=== PATIENT | female | born 1980 | race Caucasian/White ===

== ENCOUNTER 2023-01-31 08:47 | Day surgery (SDC) | payer OTHER ==
[2023-01-30 09:56] VITALS: BMI 20.8
[2023-01-31] MEDS ORDERED: PROPOFOL 60 ML ONE (09:57)
[2023-01-31] MEDS ORDERED: BUPIVACAINE 0.25% /EPI 1:200,000 10 ML VIAL INF ONE ×3 (10:27→10:40)
[2023-01-31] MEDS ORDERED: MIDAZOLAM HCL 2 MG/2 ML SINGLE DOSE VIAL ONE (10:35)
[2023-01-31] MEDS ORDERED: ONDANSETRON 4 MG/2 ML VIAL ONE (10:36)
[2023-01-31] MEDS ORDERED: ceFAZolin SODIUM 1 GM VIAL ONE (10:36)
[2023-01-31] MEDS ORDERED: ACETAMINOPHEN 1000 MG/100 ML BAG IVPB ONE (11:42)
[2023-01-31] MEDS ORDERED: oxyCODONE HCL 5 MG TABLET PO PRN (11:42)
[2023-01-31] MEDS ORDERED: ONDANSETRON 4 MG/2 ML VIAL IVPUSH PRN (11:42)
[2023-01-31] MEDS ORDERED: KETOROLAC TROMETHAMINE 30 MG/1 ML VIAL IVPUSH PRN (11:42)
[2023-01-31] MEDS ORDERED: LACTATED RINGERS SOLUTION 1,000 ML IV SCH (11:45)
[2023-01-31 12:33] VITALS: RESP 18; TEMP 97.1
[2023-01-31 13:18] VITALS: BP 97/68; PULSE 81
== END 2023-01-31 13:10 | disposition home or self-care (01) ==
LOC: FASU 08:47
PROVIDERS: ATTEND Orthopaedic Surgery
PROC: 0RBK4ZZ Excision of Left Shoulder Joint, Percutaneous Endoscopic Approach (ICD-10-PCS; principal; 2023-01-31 10:27)
PROC: 0LS44ZZ Reposition Left Upper Arm Tendon, Percutaneous Endoscopic Approach (ICD-10-PCS; 2023-01-31 10:27)
DX: S46.012D Strain of muscle(s) and tendon(s) of the rotator cuff of left shoulder, subsequent encounter (principal); M75.22 Bicipital tendinitis, left shoulder; M75.52 Bursitis of left shoulder; M65.812 Other synovitis and tenosynovitis, left shoulder; S43.432D Superior glenoid labrum lesion of left shoulder, subsequent encounter; X58.XXXD Exposure to other specified factors, subsequent encounter
CPT/HCPCS: 81025; 88304-TC; 94760; C1713

== ENCOUNTER 2024-10-25 06:26 | Day surgery (SDC) | payer OTHER ==
[2024-10-18 14:44] VITALS: BMI 22.7
[2024-10-25] MEDS ORDERED: MIDAZOLAM HCL 2 MG/2 ML SINGLE DOSE VIAL ONE (07:08)
[2024-10-25] MEDS ORDERED: PROPOFOL 20 ML ONE (07:08)
[2024-10-25] MEDS ORDERED: oxyCODONE HCL 5 MG TABLET PO PRN (07:30)
[2024-10-25] MEDS ORDERED: ONDANSETRON 4 MG/2 ML VIAL IVPUSH PRN (07:30)
[2024-10-25] MEDS ORDERED: LACTATED RINGERS SOLUTION 1,000 ML IV SCH (07:30)
[2024-10-25] MEDS ORDERED: DEXAMETHASONE SOD PHOSPHATE 4 MG/1 ML VIAL ONE (07:47)
[2024-10-25] MEDS ORDERED: KETOROLAC TROMETHAMINE 30 MG/1 ML VIAL ONE (07:47)
[2024-10-25] MEDS ORDERED: ACETAMINOPHEN INJECTION 100 ML ONE (07:47)
[2024-10-25] MEDS ORDERED: ceFAZolin SODIUM 1 GM VIAL ONE (07:47)
[2024-10-25] MEDS ORDERED: FENTANYL CITRATE/PF 50 MCG/ML VIAL ONE ×2 (08:40→08:52)
[2024-10-25 08:48] VITALS: TEMP 97.3
[2024-10-25 09:35] VITALS: PULSE 70; RESP 16
[2024-10-25 10:12] VITALS: BP 110/65
== END 2024-10-25 10:16 | disposition home or self-care (01) ==
LOC: FASU 06:26
PROVIDERS: ATTEND Orthopaedic Surgery
PROC: 0SBC4ZZ Excision of Right Knee Joint, Percutaneous Endoscopic Approach (ICD-10-PCS; principal; 2024-10-25 08:06)
DX: M94.261 Chondromalacia, right knee (principal); M65.861 Other synovitis and tenosynovitis, right lower leg; M17.11 Unilateral primary osteoarthritis, right knee
CPT/HCPCS: 81025; 94760